=== PATIENT | male | born 1970 | race Caucasian/White ===

== ENCOUNTER 2017-01-13 20:42 | Emergency (ER) | payer OTHER ==
[~2017-01-13] VITALS: Ht 172.7 cm; Wt 90.0 kg
[~2017-01-13 20:42] MED LIST: LORT5TAB PO; METO25 PO; Z.0.NO CURRENT MEDS
[2017-01-13 20:43] VITALS: BP 155/100; PULSE 98; RESP 18; TEMP 97.8; O2SAT 97
--- NOTE | 2017-01-13 21:24 | PD ---
Physical Exam Date Seen by Provider: Jan 13, 2017 Time Seen by Provider: 21:22 Narrative 46-year-old male presents for to the emergency department with complaints of left lower quadrant pain today. He has a history of kidney stones states that this is similar. He has noted increased urinary frequency and some mild dysuria. Positive nausea vomiting. He denies any flank tenderness. No pain in his testicles or groin. No alleviating activities. No exacerbating activity. No fever or chills. Last kidney stone one year ago. Patient states the pain is a 10/10. Vital signs reviewed. Pt waiting for bed placement. Data Data Last Documented VS Vital Signs Date Time Temp Pulse Resp B/P (MAP) Pulse Ox O2 Delivery O2 Flow Rate FiO2 01/13/17 20:43 97.8 98 18 155/100 (118) 97 Room Air [facility] Medical Record Reviewed: No Supervised Visit with OLIVIA: Immanuel Cope Jan 13, 2017 21:24
[2017-01-13 22:10] LABS: BACTERIA, URINE OCC /hpf; BLOOD, URINE MOD (NEG); COMMENT (UR) CULT NOT INDICATED; CULTURE IF INDICATED CULT NOT INDICATED; GLUCOSE,URINE NEG (NEG); KETONE, URINE NEG (NEG); MUCUS URINE FEW /lpf (OCC); NITRITE,URINE NEG (NEG); SQUAMOUS EPITHELIAL CELL URINE <1 /hpf (0-5); URINE COLOR YELLOW (YELLW/STRAW)
[2017-01-13] MEDS ORDERED: SODIUM CHLOR 0.9% 1000 ML INJ 1,000 ML IV ONE (22:26)
[2017-01-13] MEDS ORDERED: SODIUM CHLORIDE 0.9% FLUSH 10 ML FLUSH IVF PRN (22:30)
[2017-01-13] MEDS ORDERED: KETOROLAC TROMETHAMINE 30 MG/ML (IVP) VIAL IV PUSH ONE (22:30)
[2017-01-13] MEDS ORDERED: ONDANSETRON HCL 4 MG/2 ML VIAL IV PUSH ONE (22:30)
[2017-01-13] MEDS ORDERED: MORPHINE SULFATE 4 MG/ML INJ IV PUSH ONE (22:30)
--- NOTE | 2017-01-13 22:31 | PD ---
HPI Chief Complaint: Abdominal Pain Time Seen by Provider: 22:20 Travel History International Travel<30 days: No Contact w/Intl Traveler<30days: No Traveled to known affect area: No History of Present Illness HPI This is a 46-year-old male who presents for evaluation of abdominal pain. Symptoms started at 5 PM this evening. He describes it as a sharp pain in the left side of his abdomen which is constant, associated with nausea and several episodes of nonbloody emesis. He reports that he has had kidney stones 2-3 times in the past and this feels similar. He denies any gross hematuria however he does note slight dysuria. He denies any testicular scrotal pain, fevers or chills, flank pain, chest pain or shortness of breath. He reports past medical history of rheumatoid arthritis and gout. He has no other complaints at this time. PFSH Past Medical History Autoimmune Disease: Yes (RA) Diminished Hearing: No Gout: Yes Kidney Stones: Yes Influenza Vaccination: No Past Surgical History Surgical History: No Previous Surgery Social History Alcohol Use: No Tobacco Use: No Substance Use: No Allergies-Medications (Allergen,Severity, Reaction): Coded Allergies: No Known Allergies (Verified Adverse Reaction, Unknown, 01/13/17) Reported Meds & Prescriptions Reported Meds & Active Scripts Active Flomax (Tamsulosin HCl) 0.4 Mg Cap 0.4 Mg PO HS Lortab (Hydrocodone-Acetaminophen) 7.5-325 Mg Tab 1 Tab PO Q6H PRN Reported Allopurinol 100 Mg Tab 100 Mg PO BID Allopurinol 100 Mg Tab 100 Mg PO DAILY Lisinopril 10 Mg Tab 10 Mg PO DAILY Methocarbamol 750 Mg Tab 750 Mg PO BID Tramadol (Tramadol HCl) 50 Mg Tab 50 Mg PO BID PRN Prednisone 5 Mg Tab 5 Mg PO DAILY Review of Systems Except as stated in HPI: all other systems reviewed are Neg Physical Exam Narrative GENERAL: Well developed well-nourished male who appears in pain on initial examination. SKIN: Warm and dry. HEAD: Atraumatic. Normocephalic. EYES: Pupils equal and round. No scleral icterus. No injection or drainage. ENT: No nasal bleeding or discharge. Mucous membranes pink and moist. NECK: Trachea midline. No JVD. CARDIOVASCULAR: Regular rate and rhythm. No murmur appreciated. RESPIRATORY: No accessory muscle use. Clear to auscultation. Breath sounds equal bilaterally. GASTROINTESTINAL: Abdomen soft, left upper and lower quadrant tenderness without guarding. Mild left CVA tenderness is present. MUSCULOSKELETAL: No obvious deformities. No clubbing. No cyanosis. No edema. NEUROLOGICAL: Awake and alert. No obvious cranial nerve deficits. Motor grossly within normal limits. Normal speech. PSYCHIATRIC: Appropriate mood and affect; insight and judgment normal. Data Data Last Documented VS Vital Signs Date Time Temp Pulse Resp B/P (MAP) Pulse Ox O2 Delivery O2 Flow Rate FiO2 01/14/17 01:00 01/13/17 20:43 97.8 98 18 97 Room Air Orders Orders Urinalysis - C+S If Indicated (01/13/17 21:24) Complete Blood Count With Diff (01/13/17 22:26) Comprehensive Metabolic Panel (01/13/17 22:26) Ct Abd/Pel W/O Iv Contrast (01/13/17 22:26) Ecg Monitoring (01/13/17 22:26) Iv Access Insert/Monitor (01/13/17 22:26) Ketorolac Inj (Toradol Inj) (01/13/17 22:30) Morphine Inj (Morphine Inj) (01/13/17 22:30) Ondansetron Inj (Zofran Inj) (01/13/17 22:30) Sodium Chloride 0.9% Flush (Ns Flush) (01/13/17 22:30) Sodium Chlor 0.9% 1000 Ml Inj (Ns 1000 M (01/13/17 22:26) Ed Discharge Order (01/13/17 23:37) Sodium Chlorid 0.9% 500 Ml Inj (Ns 500 M (01/13/17 23:45) Labs Laboratory Tests Test 01/13/17 21:40 01/13/17 22:50 Urine Color YELLOW Urine Turbidity CLEAR Urine pH 5.0 Urine Specific [place] 1.017 Urine Protein NEG mg/dL Urine Glucose (UA) NEG mg/dL Urine Ketones NEG mg/dL Urine Occult Blood MOD Urine Nitrite NEG Urine Bilirubin NEG Urine Urobilinogen LESS THAN 2.0 MG/DL Urine Leukocyte Esterase NEG Urine RBC 49 /hpf Urine WBC 1 /hpf Urine Squamous Epithelial Cells <1 /hpf Urine Bacteria OCC /hpf Urine Mucus FEW /lpf Microscopic Urinalysis Comment CULT NOT INDICATED White Blood Count 17.1 TH/MM3 Red Blood Count 4.78 MIL/MM3 Hemoglobin 14.7 GM/DL Hematocrit 43.3 % Mean Corpuscular Volume 90.6 FL Mean Corpuscular Hemoglobin 30.9 PG Mean Corpuscular Hemoglobin Concent 34.0 % Red Cell Distribution Width 13.8 % Platelet Count 282 TH/MM3 Mean Platelet Volume 7.6 FL Neutrophils (%) (Auto) 84.6 % Lymphocytes (%) (Auto) 7.7 % Monocytes (%) (Auto) 7.5 % Eosinophils (%) (Auto) 0.0 % Basophils (%) (Auto) 0.2 % Neutrophils # (Auto) 14.5 TH/MM3 Lymphocytes # (Auto) 1.3 TH/MM3 Monocytes # (Auto) 1.3 TH/MM3 Eosinophils # (Auto) 0.0 TH/MM3 Basophils # (Auto) 0.0 TH/MM3 CBC Comment DIFF FINAL Differential Comment Blood Urea Nitrogen 16 MG/DL Creatinine 1.75 MG/DL Random Glucose 105 MG/DL Total Protein 8.4 GM/DL Albumin 4.0 GM/DL Calcium Level 9.3 MG/DL Alkaline Phosphatase 148 U/L Aspartate Amino Transf (AST/SGOT) 12 U/L Alanine Aminotransferase (ALT/SGPT) 30 U/L Total Bilirubin 0.3 MG/DL Sodium Level 138 MEQ/L Potassium Level 3.8 MEQ/L Chloride Level 106 MEQ/L Carbon Dioxide Level 24.1 MEQ/L Anion Gap 8 MEQ/L Estimat Glomerular Filtration Rate 42 ML/MIN [facility] Medical Decision Making Medical Screen Exam Complete: Yes Emergency Medical Condition: Yes Medical Record Reviewed: Yes Differential Diagnosis Ureteral stone, hydronephrosis, pyelonephritis, colitis, diverticulitis, obstruction Narrative Course The patient will be placed on ECG monitoring pulse oximetry. Plan is for basic lab work, urinalysis, CT abdomen and pelvis. He will be given IV fluids, Zofran , morphine, Toradol. The patient's urinalysis reveals hematuria. 2300: At the end of my shift the patient was signed out pending CT and labwork results. Scripts Tamsulosin (Flomax) 0.4 Mg Cap 0.4 MG PO HS for Manage Prostate Problems, #14 CAP 0 Refills Prov: Anni Good MD 01/13/17 Hydrocodone-Acetaminophen (Lortab) 7.5-325 Mg Tab 1 TAB PO Q6H Y for PAIN, #12 TAB 0 Refills Prov: Anni Good MD 01/13/17 Swapnil Rincon Jan 13, 2017 22:31
[2017-01-13] MEDS ORDERED: PRED5TAB PO ×2 (22:52)
[2017-01-13] MEDS ORDERED: ALLO100T PO ×2 (22:55)
[2017-01-13] MEDS ORDERED: TRAM50TA PO (22:55)
[2017-01-13] MEDS ORDERED: METH750T PO (22:55)
[2017-01-13] MEDS ORDERED: LISI10TA3 PO (22:55)
[2017-01-13 23:09] LABS: AUTOMATED NEUTROPHIL # 14.5 TH/MM3 (1.8-7.7); BASOPHIL % 0.2 % (0.0-2.0); HEMATOCRIT 43.3 % (39.0-51.0); HEMO FLAGS DIFF FINAL; LYMPH % 7.7 % (9.0-44.0); LYMPHOCYTE # 1.3 TH/MM3 (1.0-4.8); MEAN CELL VOLUME 90.6 FL (80.0-100.0); MEAN CORPUSCULAR HEMOGLOBIN 30.9 PG (27.0-34.0); MONO % 7.5 % (0.0-8.0); NEUT % 84.6 % (16.0-70.0); PLATELET COUNT 282 TH/MM3 (150-450); RED BLOOD COUNT 4.78 MIL/MM3 (4.50-5.90); RED CELL DISTRIBUTION WIDTH 13.8 % (11.6-17.2); WHITE BLOOD COUNT 17.1 TH/MM3 (4.0-11.0)
--- NOTE | 2017-01-13 23:13 | PD ---
Data Data Last Documented VS Vital Signs Date Time Temp Pulse Resp B/P (MAP) Pulse Ox O2 Delivery O2 Flow Rate FiO2 01/13/17 20:43 97.8 98 18 155/100 (118) 97 Room Air Orders Orders Urinalysis - C+S If Indicated (01/13/17 21:24) Complete Blood Count With Diff (01/13/17 22:26) Comprehensive Metabolic Panel (01/13/17 22:26) Ct Abd/Pel W/O Iv Contrast (01/13/17 22:26) Ecg Monitoring (01/13/17 22:26) Iv Access Insert/Monitor (01/13/17 22:26) Ketorolac Inj (Toradol Inj) (01/13/17 22:30) Morphine Inj (Morphine Inj) (01/13/17 22:30) Ondansetron Inj (Zofran Inj) (01/13/17 22:30) Sodium Chloride 0.9% Flush (Ns Flush) (01/13/17 22:30) Sodium Chlor 0.9% 1000 Ml Inj (Ns 1000 M (01/13/17 22:26) Ed Discharge Order (01/13/17 23:37) Labs Laboratory Tests Test 01/13/17 21:40 01/13/17 22:50 Urine Color YELLOW Urine Turbidity CLEAR Urine pH 5.0 Urine Specific [place] 1.017 Urine Protein NEG mg/dL Urine Glucose (UA) NEG mg/dL Urine Ketones NEG mg/dL Urine Occult Blood MOD Urine Nitrite NEG Urine Bilirubin NEG Urine Urobilinogen LESS THAN 2.0 MG/DL Urine Leukocyte Esterase NEG Urine RBC 49 /hpf Urine WBC 1 /hpf Urine Squamous Epithelial Cells <1 /hpf Urine Bacteria OCC /hpf Urine Mucus FEW /lpf Microscopic Urinalysis Comment CULT NOT INDICATED White Blood Count 17.1 TH/MM3 Red Blood Count 4.78 MIL/MM3 Hemoglobin 14.7 GM/DL Hematocrit 43.3 % Mean Corpuscular Volume 90.6 FL Mean Corpuscular Hemoglobin 30.9 PG Mean Corpuscular Hemoglobin Concent 34.0 % Red Cell Distribution Width 13.8 % Platelet Count 282 TH/MM3 Mean Platelet Volume 7.6 FL Neutrophils (%) (Auto) 84.6 % Lymphocytes (%) (Auto) 7.7 % Monocytes (%) (Auto) 7.5 % Eosinophils (%) (Auto) 0.0 % Basophils (%) (Auto) 0.2 % Neutrophils # (Auto) 14.5 TH/MM3 Lymphocytes # (Auto) 1.3 TH/MM3 Monocytes # (Auto) 1.3 TH/MM3 Eosinophils # (Auto) 0.0 TH/MM3 Basophils # (Auto) 0.0 TH/MM3 CBC Comment DIFF FINAL Differential Comment Blood Urea Nitrogen 16 MG/DL Creatinine 1.75 MG/DL Random Glucose 105 MG/DL Total Protein 8.4 GM/DL Albumin 4.0 GM/DL Calcium Level 9.3 MG/DL Alkaline Phosphatase 148 U/L Aspartate Amino Transf (AST/SGOT) 12 U/L Alanine Aminotransferase (ALT/SGPT) 30 U/L Total Bilirubin 0.3 MG/DL Sodium Level 138 MEQ/L Potassium Level 3.8 MEQ/L Chloride Level 106 MEQ/L Carbon Dioxide Level 24.1 MEQ/L Anion Gap 8 MEQ/L Estimat Glomerular Filtration Rate 42 ML/MIN MDM Medical Record Reviewed: Yes Supervised Visit with OLIVIA: No Narrative Course During the course of the patients emergency department visit, the patients history, examination, and differential diagnosis were reviewed with the patient. The patient was placed on a peoplesoft analyst with oximetry and frequent blood pressure monitoring. The patient had IV access obtained and blood work sent for analysis. The patient was initially evaluated by Swapnil, the physician assistant to the dean. Please see his complete history and physical. The patient 's case was checked out to me at the conclusion of his shift. The patient was initially provided morphine for pain, Zofran for nausea, Toradol 30 mg IV for continued pain, normal saline 1 L IV fluid bolus. The patients laboratory studies were reviewed and remarkable for a white count of 17.1, hemoglobin 14.7, platelets 282 with 84.6 neutrophils, lymphocytes 7.7. Some of the patient's leukocytosis could be related to chronic steroid use. CMP is remarkable for creatinine 1.75, AST 12, alkaline phosphatase 148, total protein 8.4, albumin 4.0, urinalysis shows moderate occult blood, rbc's 49. Radiology studies were reviewed and remarkable for a CT scan of the abdomen and pelvis that showed a 3 mm stone at the left UVJ junction with mild hydronephrosis. The patient was given a second 500 mL normal saline IV fluid bolus. The patient is instructed regarding the importance of pushing fluids with at least 8 glasses of water daily. The patient is instructed regarding the importance of following up with a urologist. He is given the name of the urologist on-call. The patient will be sent home with a prescription for Lortab , and Flomax. The patient is instructed to not take the Lortab while taking tramadol. The patient is resting comfortably and feels better, is alert and in no distress. The patients results and examination findings were discussed with the patient. The repeat examination is unremarkable and benign. The history, exam, diagnostic testing, and current condition do not suggest any significant pathology to warrant further testing, continued ED treatment, admission, or surgical evaluation at this point. The vital signs have been stable. The patient does not have uncontrollable pain, intractable vomiting, or other significant symptoms. The patient's condition is stable and appropriate for discharge. The patient will pursue further outpatient evaluation with a primary care physician or other designated or consulting physician as indicated in the discharge instructions. The patient expressed understanding and was agreeable with this plan. Diagnosis Primary Impression: Left ureteral calculus Referrals: Jaswinder Amador DO 2 days Patient Instructions: General Instructions, Kidney Stones (ED) Additional Instruction: Do not take tramadol while taking Lortab. Med/Other Pt SpecificInfo: Prescription(s) given Scripts Tamsulosin (Flomax) 0.4 Mg Cap 0.4 MG PO HS for Manage Prostate Problems, #14 CAP 0 Refills Prov: Anni Good MD 01/13/17 Hydrocodone-Acetaminophen (Lortab) 7.5-325 Mg Tab 1 TAB PO Q6H Y for PAIN, #12 TAB 0 Refills Prov: Anni Good MD 01/13/17 Disposition: 01 DISCHARGE HOME Condition: Stable Anni Good MD Jan 13, 2017 23:13
[2017-01-13 23:30] LABS: ANION GAP 8 MEQ/L (5-15); AST (GOT) 12 U/L (15-37); BICARBONATE 24.1 MEQ/L (21.0-32.0); BLOOD UREA NITROGEN 16 MG/DL (7-18); CHLORIDE 106 MEQ/L (98-107); GLOMERULAR FILTRATION RATE 42 ML/MIN (>89); POTASSIUM 3.8 MEQ/L (3.5-5.1); SODIUM (NA) 138 MEQ/L (136-145)
[2017-01-13 23:32] LABS: ALT (GPT) 30 U/L (12-78)
[2017-01-13 23:33] LABS: ALKALINE PHOSPHATASE 148 U/L (45-117); TOTAL BILIRUBIN ADULT 0.3 MG/DL (0.2-1.0)
--- NOTE | 2017-01-13 23:34 | RADRPT ---
EXAM DATE/TIME: 01/13/2017 23:01 [place] COMPARISON: No previous studies available for comparison. INDICATIONS : Left flank pain. ORAL CONTRAST: No oral contrast ingested. RADIATION DOSE: 10.95 CTDIvol (mGy) MEDICAL HISTORY : Renal calculi. Rheumatoid arthritis. Gout. SURGICAL HISTORY : None. ENCOUNTER: Initial ACUITY: 1 day PAIN SCALE: 10/10 LOCATION: Left upper quadrant TECHNIQUE: Volumetric scanning of the abdomen and pelvis was performed. Using automated exposure control and ad justment of the mA and/or kV according to patient size, radiation dose was kept as low as reasonably achievable to obtain optimal diagnostic quality images. DICOM format image data is available electro nically for review and comparison. FINDINGS: LOWER LUNGS: The visualized lower lungs are clear. LIVER: Visualized portions are unremarkable. SPLEEN: Visualized portions are unremarkable. PANCREAS: Within normal limits. KIDNEYS: Miniscule nonobstructing calculi present bilaterally. Mild swelling of the left kidney with mild hydr onephrosis and hydroureter down to the level of a 3 mm stone at the ureterovesical junction. 2 cm exo phytic cyst arising from the lateral lower pole cortex of left kidney. ADRENAL GLANDS: Within normal limits. VASCULAR: There is no aortic aneurysm. BOWEL/MESENTERY: Small hiatal hernia. No abnormal dilatation of bowel. No wall thickening or inflammatory changes. ABDOMINAL WALL: Within normal limits. RETROPERITONEUM: There is no lymphadenopathy. BLADDER: No wall thickening or mass. REPRODUCTIVE: Within normal limits. INGUINAL: There is no lymphadenopathy or hernia. MUSCULOSKELETAL: Within normal limits for patient age. CONCLUSION: 3 mm stone at the left ureterovesical junction with mild hydronephrosis. Keith Pascual MD on January 13, 2017 at 23:30 Board Certified Radiologist. This report was verified electronically.
[2017-01-13] MEDS ORDERED: TAMS5CAP PO (23:39)
[2017-01-13] MEDS ORDERED: HYDR-3534 PO (23:39)
[2017-01-13] MEDS ORDERED: SODIUM CHLORID 0.9% 500 ML INJ 500 ML IV ONE (23:45)
== END 2017-01-14 01:02 | disposition home or self-care (01) ==
LOC: NEPC 20:42
DX: N20.1 Calculus of ureter (principal); N13.30 Unspecified hydronephrosis; R11.2 Nausea with vomiting, unspecified; M06.9 Rheumatoid arthritis, unspecified; M10.9 Gout, unspecified; Z87.442 Personal history of urinary calculi; Z79.899 Other long term (current) drug therapy
CPT/HCPCS: 74176; 80053; 81001; 85025; 96361; 96374; 96375; 99285; J1885; J2270; J2405; J7030; J7040